=== PATIENT | female | born 1935 | race Caucasian/White ===

== ENCOUNTER → 2020-04-13 13:05 | Outpatient (CLI) | payer MEDICARE, SELFPAY ==
--- NOTE | ~2020-04-13 | US_ITS ---
EXAMINATION: US thyroid DATE: 04/13/2020 13:33 INDICATION: Iodine deficiency related diffuse endemic goiter. TECHNIQUE: Multiple ultrasound images of the thyroid were obtained. COMPARISON: None. FINDINGS: The right thyroid lobe measures 4.0 x 1.2 x 1.6 cm. The left thyroid lobe measures 4.3 x 1.3 x 1.4 c m. In the left thyroid lobe, there is a 7 mm solid, hypoechoic, hwvgd-kogg-gfza nodule with ill-defi amandeep margin and punctate echogenic foci (TI-RADS TR5). In the left thyroid lobe, there is a 3 mm nodul e. In the right thyroid lobe, there is a 7 mm predominantly solid, hypoechoic, fzaxa-ucxz-ypnh nodule with ill-defined margin without echogenic foci (TR4). In the right thyroid lobe, there is a 5 mm luis id, hypoechoic, xidge-guiw-lybg nodule with smooth margin without echogenic foci (TR4). In the thyroi d isthmus, there is a 4 mm nodule. IMPRESSION: 1. Small thyroid nodules. Thyroid ultrasound is recommended in one year. Reviewed, dictated and finalized at location A. CAL THER[employer]IST
== END ==
PROVIDERS: PCP Family Medicine; Visit Provider Family Medicine
DX: E04.2 Nontoxic multinodular goiter (principal)
CPT/HCPCS: 76536

== ENCOUNTER 2020-04-16 11:18 | Outpatient (CLI) | payer MEDICARE, SELFPAY | END 2020-04-16 11:19 | disposition home or self-care (01) | PROVIDERS: PCP Family Medicine | DX: Z23 Encounter for immunization (principal) | CPT/HCPCS: 0001A; 91300 ==

== ENCOUNTER 2020-05-07 11:17 | Outpatient (CLI) | payer MEDICARE, SELFPAY | END 2020-05-07 11:18 | disposition home or self-care (01) | LOC: ANHCOVIDVC 11:17 | PROVIDERS: PCP Family Medicine | DX: Z23 Encounter for immunization (principal) | CPT/HCPCS: 0002A; 91300 ==

== ENCOUNTER → 2021-04-19 11:09 | Outpatient (CLI) | payer MEDICARE, SELFPAY ==
--- NOTE | ~2021-04-19 | US_ITS ---
EXAMINATION: US thyroid DATE: 04/19/2021 11:31 INDICATION: Nontoxic single thyroid nodule. TECHNIQUE: Multiple ultrasound images of the thyroid were obtained. COMPARISON: Ultrasound 04/13/2020 FINDINGS: The right thyroid lobe measures 3.6 x 1.3 x 1.4 cm. The left thyroid lobe measures 4.1 x 1.2 x 1.3 c m. In the right thyroid lobe, there is a 10 mm solid, hypoechoic, vdfot-xgki-dgkk nodule with ill-de fined margin without echogenic foci (TI-RADS TR4). In the right thyroid lobe, there is a 5 mm solid, hypoechoic, ciebj-fzel-fnfi nodule with smooth margin without echogenic foci (TR4). In the right thyr oid lobe, there is a 11 mm solid, hypoechoic, rcrue-ylea-msff nodule with lobulated margin without ec hogenic foci (TR4). In the left thyroid lobe, there is a 6 mm solid, hypoechoic, plqxb-opkv-kkyt nodu le with punctate echogenic focus and smooth margin (TR5). IMPRESSION: 1. Worsened thyroid nodules. Thyroid ultrasound is recommended in one year if clinically indicated gi radha the patient's age. Reviewed, dictated and finalized at location A. [employer] IMPRESSION: 1. Worsened thyroid nodules. Thyroid ultrasound is recommended in one year if c linically indicated given the patient's age.
== END ==
PROVIDERS: PCP Family Medicine; Visit Provider Family Medicine
DX: E04.2 Nontoxic multinodular goiter (principal)
CPT/HCPCS: 76536

== ENCOUNTER → 2022-05-09 09:19 | Outpatient (CLI) | payer MEDICARE, SELFPAY ==
--- NOTE | ~2022-05-09 | US_ITS ---
EXAMINATION: US thyroid DATE: 05/09/2022 09:46 INDICATION: Nontoxic single thyroid nodule. TECHNIQUE: Multiple ultrasound images of the thyroid were obtained. COMPARISON: Ultrasound 04/19/2021, 04/13/2020 FINDINGS: The right thyroid lobe measures 3.3 x 1.7 x 1.8 cm. The left thyroid lobe measures 4.1 x 1.6 x 1.4 c m. In the left thyroid lobe, there is an 8 mm predominantly solid, hypoechoic, wider than tall nodul e with smooth margin and punctate echogenic foci (TI-RADS TR5). In the right thyroid lobe, there is a 7 mm solid, hypoechoic, wider than tall nodule with lobulated margin without echogenic foci (TR4). I n the right thyroid lobe, there is a 5 mm solid, very hypoechoic, wider than tall nodule with smooth margin without echogenic foci (TR4). IMPRESSION: 1. Small thyroid nodules. Thyroid ultrasound is recommended in one year if clinically indicated given the patient's age. Reviewed, dictated and finalized at location A. IMPRESSION: 1. Small thyroid nodules. Thyroid ultrasound is recommended in one year if clin ically indicated given the patient's age.
== END ==
PROVIDERS: PCP Family Medicine; Visit Provider Family Medicine
DX: E04.2 Nontoxic multinodular goiter (principal)
CPT/HCPCS: 76536

== ENCOUNTER 2023-06-06 09:41 | Outpatient (CLI) | payer MEDICARE, SELFPAY ==
--- NOTE | ~2023-06-06 | US_ITS ---
US thyroid INDICATION: Nontoxic thyroid nodules TECHNIQUE: Real-time sonographic images of the thyroid gland were obtained. COMPARISON: Comparison to multiple prior studies sequentially, with oldest reviewed study dated 08/2021. FINDINGS: The right thyroid lobe measures 3.5 x 1.5 x 1.4 cm. The left thyroid lobe measures 4.3 x 1 x 1.5 cm. In the right lobe there is an solid hypoechoic wider than tall smoothly marginated mass wi thout echogenic foci measuring 7 mm, TR 4. In the left lobe there is a mixed cystic and solid hypoech oic wider than tall mass with irregular margins and no internal echogenic foci, TR 4, measuring 7 mm. Normal vascular flow is present. IMPRESSION: 1. No significant change to likely benign bilateral thyroid nodules. Reviewed, dictated and finalized at location B.
== END 2023-06-06 09:42 ==
LOC: MICIMG 09:42
PROVIDERS: PCP Family Medicine; Visit Provider Family Medicine
DX: E04.1 Nontoxic single thyroid nodule (principal)
CPT/HCPCS: 76536

== ENCOUNTER 2024-05-27 08:56 | Outpatient (CLI) | payer MEDICARE, SELFPAY ==
--- NOTE | ~2024-05-27 | US_ITS ---
Pelvic ultrasound. Clinical History: Postmenopausal bleeding Technique: Realtime transabdominal and transvaginal scanning of the pelvis was performed. Color flow Doppler and Doppler spectral analysis were performed. Findings: The uterus is anteverted, and measures 5.1 x 1.7 x 3.6 cm. The endometrial stripe has a th ickness of 3 mm. No focal mass is identified. Neither ovary seen. No adnexal mass seen.. There is no evidence of free fluid in the cul de sac. Impression: No evidence for abnormal endometrial thickening. Reviewed, dictated and finalized at location . Impression: No evidence for abnormal endometrial thickening.
== END 2024-05-27 08:57 | disposition home or self-care (01) ==
LOC: MICIMG 08:58
PROVIDERS: PCP Obstetrics & Gynecology Gynecology; Visit Provider Obstetrics & Gynecology Gynecology
DX: N95.0 Postmenopausal bleeding (principal)
CPT/HCPCS: 76830